=== PATIENT | male | born 1955 | race Caucasian/White ===

== ENCOUNTER 2018-01-22 13:27 | Emergency (ER) | payer SELFPAY, OTHER ==
[2018-01-22] MEDS: NS 1,000 ML IV (14:30)
[2018-01-22 14:52] LABS: BASO # 0.1 10^3/uL (0.0-0.2); BASO % 0.5 % (0.0-1.0); EOS # 0.1 10^3/uL (0.0-0.50); EOS % 0.5 % (0.0-3.0); HEMATOCRIT 45.2 % (42.0-52.0); HEMOGLOBIN 15.6 g/dl (13.5-17.5); IMMATURE GRANULOCYTE % 0.5 % (0-3.0); LYMPH # 1.2 10^3/uL (1.5-4.5); LYMPH % 12.6 % (24.0-44.0); MEAN CORPUSCULAR HEMOGLOBIN 30.1 pg (27.0-33.0); MEAN CORPUSCULAR HGB CONC 34.5 g/dl (32.0-36.5); MEAN CORPUSCULAR VOLUME 87.1 fl (80.0-96.0); MONO # 0.6 10^3/uL (0.0-0.8); MONO % 6.6 % (0.0-5.0); NEUTROPHILS # 7.7 10^3/uL (1.8-7.7); NEUTROPHILS % 79.3 % (36.0-66.0); PLATELET COUNT, AUTOMATED 215 10^3/uL (150-450); RED BLOOD COUNT 5.19 10^6/uL (4.30-6.10); WHITE BLOOD COUNT 9.7 10^3/uL (4.0-10.0)
[2018-01-22] MEDS: ONDANSETRON 4MG/2ML VIAL (J2405) IV (14:53)
[2018-01-22] MEDS: MORPHINE 4 MG/ML 1ML VIAL/SYRINGE (J2270) IV ×2 (14:54→15:45)
[2018-01-22 15:22] LABS: ALBUMIN 3.7 GM/DL (3.2-5.2); ALBUMIN/GLOBULIN RATIO 1.06 (1.00-1.93); ALKALINE PHOSPHATASE 95 U/L (45-117); ALT/SGPT 41 U/L (12-78); ANION GAP 11 MEQ/L (8-16); AST/SGOT 24 U/L (7-37); BILIRUBIN,DIRECT 0.2 MG/DL (0.0-0.2); BILIRUBIN,TOTAL 0.6 MG/DL (0.2-1.0); BLOOD UREA NITROGEN 21 MG/DL (7-18); CALCIUM LEVEL 8.5 MG/DL (8.8-10.2); CARBON DIOXIDE LEVEL 24 MEQ/L (21-32); CHLORIDE LEVEL 106 MEQ/L (98-107); CREATININE FOR GFR 1.42 MG/DL (0.70-1.30); GLOMERULAR FILTRATION RATE 53.8 (>49); GLUCOSE, FASTING 165 MG/DL (70-100); LIPASE 127 U/L (73-393); SODIUM LEVEL 141 MEQ/L (136-145); TOTAL PROTEIN 7.2 GM/DL (6.4-8.2)
[2018-01-22] MEDS ORDERED: ISOVUE-370 76% 100ML VIAL (Q9967) As Ordered (15:25)
[2018-01-22] MEDS: TAMSULOSIN 0.4 MG CAP PO (17:00)
[2018-01-22] MEDS: KETOROLAC 30 MG/ML VIAL (J1885) IV (17:00)
== END 2018-01-22 17:47 | disposition home or self-care (01) ==
LOC: M ED 13:27
DX: N20.1 Calculus of ureter (principal); I10 Essential (primary) hypertension; E78.5 Hyperlipidemia, unspecified; K21.9 Gastro-esophageal reflux disease without esophagitis; Z82.49 Family history of ischemic heart disease and other diseases of the circulatory system; Z88.8 Allergy status to other drugs, medicaments and biological substances; Z88.5 Allergy status to narcotic agent
CPT/HCPCS: J2270

== ENCOUNTER → 2021-01-06 | Outpatient (CLI) | payer BC ==
[~2021-01-06] MED LIST: ARIC1TAB2 PO; ASPI81TA26 PO; ASPI81TA86 PO; CALC1TAB40 PO; COUM10TA PO; COUM7.5T6 PO; FISH5CAP PO; FLOM0.4C39 PO; GLUCTAB6 PO; ISOVUE-300 61% 50ML VIAL As Ordered ONE; KETO10TAB PO; LIDOCAINE 1% MDV 20ML VIAL As Ordered ONE; LOPR1TAB6 PO; LOSA100T50 PO; METO50TA7 PO; MULT1TAB11 PO; NIAC500T5 PO; OCUVTAB PO; PROT1TAB2 PO; SING10TA32 PO; TRIAMCINOLONE ACETONIDE SUSP 40 MG/ML VIAL (J3301) As Ordered ONE; TYLE325T5 PO; ULTR50TA8 PO; VITA100018 PO; ZETI10TA16 PO; ZOLP10TA2 PO
--- NOTE | 2021-01-06 18:35 | REP ---
INDICATION: LEFT SHOULDER OSTEOARTHRITIS. COMPARISON: None. TECHNIQUE: The procedure was performed under the direct supervision of Dr. Rosa. The benefits and risks including but not limited to pain infection bleeding and anaphylaxis were explained to the patient and informed consent was obtained. The left glenohumeral joint space was localized using fluoroscopic guidance. The skin was prepped and draped in a sterile fashion. 1% lidocaine was used as a local anesthetic. Using fluoroscopic guidance, and the last image hold technology, a 22 gauge spinal needle was inserted and advanced into the joint. 1 cc of Isovue 300 was injected to verify placement. 5 cc of a solution containing 4 cc of 1% lidocaine and 1 cc of Kenalog 40 mg was injected. The needle was then removed. The patient tolerated the procedure well and there were no immediate complications. Less than 6 seconds of fluoroscopy time was utilized FINDINGS: None IMPRESSION: Fluoroscopic guidance for left shoulder injection. <Electronically signed by Ta Wilkins > 01/06/21 1518 <Electronically signed by Chapo Rosa > 01/06/21 [id number]
== END ==
LOC: M RADPRO 10:50
PROVIDERS: ATTEND Orthopaedic Surgery
DX: M19.012 Primary osteoarthritis, left shoulder (principal)
CPT/HCPCS: 20610; 77002; J3301; Q9967

== ENCOUNTER → 2021-01-09 | Outpatient (CLI) | payer BC ==
--- NOTE | 2021-01-09 16:51 | REP ---
INDICATION: RT SHOULDER PAIN. COMPARISON: None TECHNIQUE: The procedure was performed by MARIA EUGENIA Ruiz, under the direct supervision of Dr. Rosa. The benefits and risks of the procedure were explained to the patient, and an informed consent was obtained. Directly prior to the start of the procedure, a formal time-out was completed in the procedure room. The right glenohumeral joint space was localized using fluoroscopic guidance. The skin was prepped and draped in a sterile fashion. Approximately 5 mL of 1% Lidocaine 10 mg/ml was used as a local anesthetic. Using fluoroscopic guidance, a #22 gauge spinal needle was inserted and advanced into the right glenohumeral joint space. Approximately 1 mL of Isovue 300 was injected to verify placement. Five mL of a solution containing 4 mL 1% lidocaine 10 mg/ml and 1 mL Kenalog 40 milligrams/milliliter was injected into the joint space. The needle was removed and hemostasis was achieved. FINDINGS: The patient tolerated the procedure well and there were no immediate complications. IMPRESSION: 1. Fluoroscopic guided right shoulder intra-articular pain injection. 0.1 minutes of fluoroscopy time was utilized for this procedure. Some fluoroscopic images are performed with last image hold technology. These images require no additional radiation. <Electronically signed by Reyna Martines > 01/09/21 1533 <Electronically signed by Chapo Rosa > 01/09/21 [id number]
== END ==
LOC: M RADPRO 13:46
PROVIDERS: ATTEND Orthopaedic Surgery
DX: M19.011 Primary osteoarthritis, right shoulder (principal)
CPT/HCPCS: 20610; 77002; J3301; Q9967

== ENCOUNTER → 2021-02-19 | Outpatient (CLI) | payer BC ==
[~2021-02-19] MED LIST changes: -ISOVUE-300 61% 50ML VIAL As Ordered ONE; -LIDOCAINE 1% MDV 20ML VIAL As Ordered ONE; -TRIAMCINOLONE ACETONIDE SUSP 40 MG/ML VIAL (J3301) As Ordered ONE
--- NOTE | 2021-02-19 12:40 | REP ---
INDICATION: OZZIE SHOULDER OA W/ PAIN ? RCT. COMPARISON: Comparison left shoulder radiographs September 21, 2020.. TECHNIQUE: Axial, oblique coronal, and oblique sagittal imaging planes utilized. T1 and T2 weighted scans are included with without fat saturation. For FINDINGS: There is extensive subcortical cyst formation in the superolateral humeral head. Some subcortical cyst formation is seen in the posterior glenoid superiorly and inferiorly. There is osteoarthritic hypertrophy and marrow edema associated with the acromioclavicular joint. Glenohumeral alignment is normal. There is mild glenohumeral joint fluid. There is glenohumeral osteoarthritic spurring moderate in degree. Advanced glenohumeral chondromalacia is seen with large areas of essentially full-thickness glenoid articular cartilage loss. Fraying of both the anterior and posterior cartilage labrum is seen. The superior labrum appears somewhat frayed as well. There is no full-thickness supraspinatus cuff tear. There is advanced tendinitis tendinosis change in the supraspinatus however and partial thickness T2 hyperintensity is seen at the distal insertion. The infraspinatus and subscapularis tendons appear intact. Biceps tendon is in the bony bicipital groove. The biceps tendon appears to be intact. IMPRESSION: Glenohumeral and acromioclavicular joint osteoarthritis. Advanced chondromalacia in the glenohumeral articulation. Supraspinatus tendinosis and partial-thickness cuff lesion. Extensive subcortical cyst formation. <Electronically signed by Brandon Hernandez > 02/19/21 [id number]
--- NOTE | 2021-02-19 12:50 | REP ---
INDICATION: OZZIE SHOULDER OA W/ PAIN ? RCT. COMPARISON: Comparison right shoulder radiographs are from September 21, 2020.. TECHNIQUE: Axial, oblique coronal, and oblique sagittal imaging planes utilized. T1 and T2 weighted scans are included with without fat saturation. FINDINGS: There is advanced glenohumeral and moderate acromioclavicular joint osteoarthritis. Large inferior marginal spurring is seen from the humeral head. There is some remodeling of the humeral head and glenoid. Subcortical cyst formation is seen. Extensive degeneration of the labral cartilage is seen posteriorly anteriorly and superiorly. Severe chondromalacia is seen in the glenohumeral articulation. There is some subcortical cyst formation in the humeral head and moderate subcortical cyst formation is seen in the glenoid. The supraspinatus tendon appears intact with partial-thickness tendinosis change but no full-thickness cuff tear. The infraspinatus and subscapularis tendons have an intact appearance. Biceps tendon is is seen within the bony bicipital groove. No juxta-articular cyst or mass is seen. There is evidence of a osteocartilaginous loose body posteriorly measuring 1.6 cm in greatest diameter. This is at the posterior aspect of the glenohumeral articulation. A 2nd post row superior loose body is suspected as well, IMPRESSION: Severe glenohumeral osteoarthritis. Osteocartilaginous loose bodies. AC joint osteoarthritis. No full-thickness supraspinatus cuff tear seen. <Electronically signed by Brandon Hernandez > 02/19/21 [id number]
== END ==
LOC: M RAD 08:50
PROVIDERS: ATTEND Orthopaedic Surgery Sports Medicine
DX: M19.011 Primary osteoarthritis, right shoulder (principal)

== ENCOUNTER → 2021-04-27 | Outpatient (CLI) | payer BC ==
[~2021-04-27] MED LIST changes: +ISOVUE-300 61% 50ML VIAL As Ordered ONE; +LIDOCAINE 1% MDV 20ML VIAL As Ordered ONE; +methylPREDNISolone SUSP 40MG/ML 1ML VIAL (DEPO MEDROL) As Ordered ONE
--- NOTE | 2021-04-27 14:35 | REP ---
INDICATION: OA RT SHOULDER. COMPARISON: None TECHNIQUE: The procedure was performed by MARIA EUGENIA Ruiz, under the direct supervision of Dr. Hernandez. The benefits and risks of the procedure were explained to the patient, and an informed consent was obtained. Directly prior to the start of the procedure, a formal time-out was completed in the procedure room. The right glenohumeral joint space was localized using fluoroscopic guidance. The skin was prepped and draped in a sterile fashion. Approximately 5 mL of 1% Lidocaine 10 mg/ml was used as a local anesthetic. Using fluoroscopic guidance, a #22 gauge spinal needle was inserted and advanced into the right glenohumeral joint space. Approximately 1 mL of Isovue 300 was injected to verify placement. Six mL of a solution containing 4 mL 1% lidocaine 10 mg/ml and 2 mL Depo-Medrol 40 milligrams/milliliter was injected into the joint space. The needle was removed and hemostasis was achieved. FINDINGS: The patient tolerated the procedure well and there were no immediate complications. IMPRESSION: 1. Fluoroscopically guided right shoulder intra-articular pain injection. 0.1 minutes of fluoroscopy time was utilized for this procedure. Some fluoroscopic images are performed with last image hold technology. These images require no additional radiation. <Electronically signed by Reyna Martines > 04/27/21 1201 <Electronically signed by Brandon Hernandez > 04/27/21 [id number]
== END ==
LOC: M RADPRO 11:02
PROVIDERS: ATTEND Orthopaedic Surgery Sports Medicine
DX: M19.011 Primary osteoarthritis, right shoulder (principal)
CPT/HCPCS: 20610; 77002; J1030; Q9967